=== PATIENT | female | born 1995 | race Caucasian/White ===

== ENCOUNTER 2017-02-02 12:28 | Emergency (ER) | payer OTHER ==
[~2017-02-02] VITALS: Ht 160 cm; Wt 49.0 kg
[~2017-02-02 12:28] MED LIST: ADDERALL30 MG PO; ADDERALL5 MG PO; AMOXICILLIN500 MG PO; AMOXIL500 M1 PO; ANAPROX DS550 MG PO; ATIVAN0.5 MG PO; BACTRIM DS 8001 TA1 PO; BENADRYL ALLERG25 M5 PO; BENTYL10 MG PO; FLAGYL500 MG PO; FLEXERIL10 MG PO; FLEXERIL5 MG PO; GEODON20 MG PO; HYDROCODONE BIT1 T11 PO; IBU800 M1 PO; IBUPROFEN600 MG PO; K-TAB20 MEQ PO; KEFLEX500 MG PO; MACROBID100 M1 PO; MOTRIN600 MG PO; MOTRIN800 MG PO; NORCO 10-325 T1 EACH PO; NORCO 5-325 TA1 EACH PO; PERCOCET 325 MG1 TA7 PO; PREDNICOT20 MG PO; PRENATAL1 TA1 PO; PRENATAL1 TA3 PO; PRENATAL1 TA7 PO; PROVENTIL0.09 MG/AC IH; REGLAN10 M1 PO; TRAMADOL HCL50 MG PO; TRAZODONE50 MG PO; ULTRAM50 MG PO; VALIUM5 MG PO; VIBRAMYCIN100 MG PO; VICODIN 5/500 505 MG PO; VISTARIL25 M1 PO; ZITHROMAX Z PA250 MG PO; ZOFRAN ODT4 MG PO; ZOFRAN ODT4 MG SL; ZOFRAN4 MG PO; Zofran4 MG PO
[2017-02-02] MEDS ORDERED: AMOXICILLIN500 M2 PO (14:17)
[2017-02-02] MEDS ORDERED: MEDROL DOSEPAK4 MG PO (14:17)
== END 2017-02-02 14:28 | disposition home or self-care (01) ==
LOC: ED 12:28
DX: J01.90 Acute sinusitis, unspecified (principal); J45.909 Unspecified asthma, uncomplicated; F17.200 Nicotine dependence, unspecified, uncomplicated

== ENCOUNTER 2017-05-24 18:36 | Emergency (ER) | payer OTHER ==
[~2017-05-24] VITALS: Ht 160 cm; Wt 59.0 kg
[~2017-05-24 18:36] MED LIST changes: +AMOXICILLIN500 M2 PO; +MEDROL DOSEPAK4 MG PO
[2017-05-24 19:14] LABS: BILIRUBIN NEGATIVE (NEGATIVE); BLOOD 3+ (NEGATIVE); CLARITY CLOUDY (CLEAR); COLOR YELLOW (YELLOW); GLUCOSE NEGATIVE (NEGATIVE); KETONE NEGATIVE (NEGATIVE); LEUKO ESTERASE TRACE (NEGATIVE); NITRITE NEGATIVE (NEGATIVE); PH 6.5 (5.0-9.0); PROTEIN TRACE (NEGATIVE)
[2017-05-24 19:19] LABS: BACTERIA 1+; EPITHELIAL CELLS 0-2; RBC TNTC rbc/hpf (0-2)
[2017-05-24] MEDS ORDERED: CEFUROXIME AXE250 MG PO (21:43)
== END 2017-05-24 22:08 | disposition home or self-care (01) ==
LOC: ED 18:36
PROVIDERS: Registered Nurse
DX: O46.91 Antepartum hemorrhage, unspecified, first trimester (principal); Z3A.01 Less than 8 weeks gestation of pregnancy; F17.200 Nicotine dependence, unspecified, uncomplicated

== ENCOUNTER 2017-10-28 09:59 | Emergency (ER) | payer OTHER ==
[~2017-10-28] VITALS: Ht 160 cm; Wt 54.4 kg
[~2017-10-28 09:59] MED LIST changes: +CEFUROXIME AXE250 MG PO
[2017-10-28 10:54] LABS: BASO % 0.5 % (0.0-1.0); EOS # 0.1 10*3/uL (0.0-0.4); EOS % 0.8 % (1.0-4.0); HEMATOCRIT 32.5 % (37.0-47.0); LYMPH # 1.1 10*3/uL (1.3-4.4); LYMPH % 17.5 % (27.0-41.0); MEAN CELL VOLUME 72.2 fl (81.0-99.0); MEAN CORPUSCULAR HGB 22.2 pg (27.0-31.0); MEAN CORPUSCULAR HGB CONC 30.8 g/dl (33.0-37.0); MEAN PLATELET VOLUME 10.1 fl (9.6-12.3); MONO # 0.6 10*3/uL (0.1-1.0); MONO % 8.7 % (3.0-9.0); NEUT # 4.5 10*3/uL (2.3-7.9); NEUT % 72.2 % (47.0-73.0); PLATELET COUNT AUTOMATED 497 10*3/uL (130-400); RED CELL DISTRI WIDTH 17.3 % (0-14.5); WHITE BLOOD COUNT 6.3 10*3/uL (4.8-10.8)
[2017-10-28 11:09] LABS: ALBUMIN 3.5 gm/dl (3.1-4.5); ALKALINE PHOSPHATASE 101 U/L (45-117); BUN 11 mg/dl (7-24); CHLORIDE 106 mmol/L (98-107); POTASSIUM 3.4 mmol/L (3.5-5.1); SGOT/AST 23 IU/L (3-35); SGPT/ALT 18 U/L (12-78); SODIUM 137 mmol/L (136-145); TOTAL PROTEIN 7.8 gm/dL (6.4-8.2)
[2017-10-28 11:17] LABS: BILIRUBIN 1+ (NEGATIVE); BLOOD NEGATIVE (NEGATIVE); CLARITY SL CLOUDY (CLEAR); COLOR YELLOW (YELLOW); GLUCOSE NEGATIVE (NEGATIVE); KETONE TRACE (NEGATIVE); LEUKO ESTERASE NEGATIVE (NEGATIVE); NITRITE NEGATIVE (NEGATIVE); PH 5.5 (5.0-9.0); SPECIFIC GRAVITY >= 1.030 (1.005-1.030)
[2017-10-28 11:28] LABS: BACTERIA 2+; EPITHELIAL CELLS 16-20; MUCOUS 2+
[2017-10-28] MEDS ORDERED: DICLEGIS DR 101 EACH PO (11:34)
[2017-10-28] MEDS ORDERED: PRENATAL VITAM1 EAC4 PO (11:34)
== END 2017-10-28 12:00 | disposition home or self-care (01) ==
LOC: ED 09:59
PROVIDERS: Nurse Practitioner Family
DX: Z32.01 Encounter for pregnancy test, result positive (principal); F17.200 Nicotine dependence, unspecified, uncomplicated

== ENCOUNTER 2017-12-25 13:16 | Emergency (ER) | payer OTHER ==
[~2017-12-25] VITALS: Ht 160 cm; Wt 59.0 kg
[~2017-12-25 13:16] MED LIST changes: +DICLEGIS DR 101 EACH PO; +PRENATAL VITAM1 EAC4 PO
[2017-12-25 14:54] LABS: BILIRUBIN NEGATIVE (NEGATIVE); BLOOD NEGATIVE (NEGATIVE); CLARITY CLEAR (CLEAR); COLOR YELLOW (YELLOW); GLUCOSE NEGATIVE (NEGATIVE); KETONE NEGATIVE (NEGATIVE); LEUKO ESTERASE NEGATIVE (NEGATIVE); NITRITE NEGATIVE (NEGATIVE); PH 7.5 (5.0-9.0); UROBILINOGEN 0.2 E.U./dl (0.2-1.0)
[2017-12-25 14:59] LABS: RBC 0-2 rbc/hpf (0-2); WBC 0-2 wbc/hpf (0-5)
[2017-12-25] MEDS ORDERED: CLOTRIMAZOLE 321 GM V (15:09)
== END 2017-12-25 15:17 | disposition home or self-care (01) ==
LOC: ED 13:16
PROVIDERS: Emergency Medicine
DX: O26.892 Other specified pregnancy related conditions, second trimester (principal); R10.30 Lower abdominal pain, unspecified; F17.200 Nicotine dependence, unspecified, uncomplicated; Z3A.20 20 weeks gestation of pregnancy

== ENCOUNTER 2018-03-02 10:20 | Emergency (ER) | payer OTHER ==
[~2018-03-02] VITALS: Wt 59.0 kg
[~2018-03-02 10:20] MED LIST changes: +CLOTRIMAZOLE 321 GM V
[2018-03-02 10:50] LABS: BASO % 0.1 % (0.0-1.0); EOS % 0.1 % (1.0-4.0); HEMATOCRIT 30.3 % (37.0-47.0); HEMOGLOBIN 9.7 g/dl (12.0-16.0); LYMPH # 0.7 10*3/uL (1.3-4.4); LYMPH % 5.9 % (27.0-41.0); MEAN CELL VOLUME 72.8 fl (81.0-99.0); MEAN CORPUSCULAR HGB 23.3 pg (27.0-31.0); MEAN PLATELET VOLUME 10.5 fl (9.6-12.3); MONO # 0.6 10*3/uL (0.1-1.0); MONO % 4.6 % (3.0-9.0); NEUT # 10.6 10*3/uL (2.3-7.9); NEUT % 88.7 % (47.0-73.0); PLATELET COUNT AUTOMATED 303 10*3/uL (130-400); RED BLOOD COUNT 4.16 10*6/uL (4.10-5.10); RED CELL DISTRI WIDTH 16.9 % (0-14.5); WHITE BLOOD COUNT 11.9 10*3/uL (4.8-10.8)
[2018-03-02 11:05] LABS: ALBUMIN 2.9 gm/dl (3.1-4.5); ALKALINE PHOSPHATASE 126 U/L (45-117); BUN 3 mg/dl (7-24); CHLORIDE 101 mmol/L (98-107); CREATININE 0.58 mg/dL (0.55-1.02); POTASSIUM 2.8 mmol/L (3.5-5.1); SGOT/AST 13 IU/L (3-35); SGPT/ALT 18 U/L (12-78); SODIUM 132 mmol/L (136-145); TOTAL PROTEIN 7.3 gm/dL (6.4-8.2)
[2018-03-02 11:57] LABS: BILIRUBIN NEGATIVE (NEGATIVE); BLOOD NEGATIVE (NEGATIVE); CLARITY CLOUDY (CLEAR); COLOR YELLOW (YELLOW); GLUCOSE NEGATIVE (NEGATIVE); KETONE NEGATIVE (NEGATIVE); LEUKO ESTERASE 1+ (NEGATIVE); NITRITE NEGATIVE (NEGATIVE); SPECIFIC GRAVITY <= 1.005 (1.005-1.030)
[2018-03-02 12:15] LABS: BACTERIA 3+; EPITHELIAL CELLS 15-20; WBC 31-40 wbc/hpf (0-5)
[2018-03-02] MEDS ORDERED: TAMIFLU 75MG CA75 MG PO (12:55)
[2018-03-02] MEDS ORDERED: K-TAB20 MEQ PO (12:58)
== END 2018-03-02 13:00 | disposition home or self-care (01) ==
LOC: ED 10:20
PROVIDERS: Nurse Practitioner Family
DX: O98.512 Other viral diseases complicating pregnancy, second trimester (principal); J10.1 Influenza due to other identified influenza virus with other respiratory manifestations; O26.892 Other specified pregnancy related conditions, second trimester; E87.6 Hypokalemia; Z79.899 Other long term (current) drug therapy; Z3A.23 23 weeks gestation of pregnancy

== ENCOUNTER 2018-03-07 11:40 | Emergency (ER) | payer OTHER ==
[~2018-03-07] VITALS: Ht 160 cm; Wt 59.0 kg
[~2018-03-07 11:40] MED LIST changes: +TAMIFLU 75MG CA75 MG PO
[2018-03-07 12:35] LABS: BASO % 0.2 % (0.0-1.0); EOS # 0.1 10*3/uL (0.0-0.4); EOS % 1.4 % (1.0-4.0); HEMATOCRIT 29.7 % (37.0-47.0); HEMOGLOBIN 9.3 g/dl (12.0-16.0); LYMPH % 20.8 % (27.0-41.0); MEAN CELL VOLUME 74.4 fl (81.0-99.0); MEAN CORPUSCULAR HGB 23.3 pg (27.0-31.0); MEAN CORPUSCULAR HGB CONC 31.3 g/dl (33.0-37.0); MEAN PLATELET VOLUME 10.1 fl (9.6-12.3); MONO # 0.4 10*3/uL (0.1-1.0); MONO % 4.6 % (3.0-9.0); NEUT # 6.9 10*3/uL (2.3-7.9); NEUT % 72.6 % (47.0-73.0); PLATELET COUNT AUTOMATED 300 10*3/uL (130-400); RED BLOOD COUNT 3.99 10*6/uL (4.10-5.10); RED CELL DISTRI WIDTH 16.6 % (0-14.5); WHITE BLOOD COUNT 9.4 10*3/uL (4.8-10.8)
[2018-03-07 12:54] LABS: ALBUMIN 2.4 gm/dl (3.1-4.5); ALKALINE PHOSPHATASE 161 U/L (45-117); BUN 3 mg/dl (7-24); CHLORIDE 104 mmol/L (98-107); CREATININE 0.53 mg/dL (0.55-1.02); POTASSIUM 2.9 mmol/L (3.5-5.1); SGOT/AST 12 IU/L (3-35); SGPT/ALT 14 U/L (12-78); SODIUM 138 mmol/L (136-145); TOTAL PROTEIN 7.2 gm/dL (6.4-8.2)
== END 2018-03-07 13:51 | disposition home or self-care (01) ==
LOC: ED 11:40
PROVIDERS: Nurse Practitioner
DX: O99.511 Diseases of the respiratory system complicating pregnancy, first trimester (principal); J02.9 Acute pharyngitis, unspecified; F17.200 Nicotine dependence, unspecified, uncomplicated

== ENCOUNTER → 2018-04-17 | Outpatient (CLI) | payer OTHER | LOC: US 14:45 | DX: Z33.1 Pregnant state, incidental (principal); Z3A.28 28 weeks gestation of pregnancy ==

== ENCOUNTER 2018-07-18 12:01 | Emergency (ER) | payer OTHER ==
[~2018-07-18] VITALS: Ht 160 cm; Wt 63.5 kg
[~2018-07-18 12:01] MED LIST changes: +AMINOPHYLLIN200 MG PO
[2018-07-18 12:31] LABS: BILIRUBIN NEGATIVE (NEGATIVE); BLOOD NEGATIVE (NEGATIVE); CLARITY SL CLOUDY (CLEAR); COLOR YELLOW (YELLOW); GLUCOSE NEGATIVE (NEGATIVE); KETONE NEGATIVE (NEGATIVE); LEUKO ESTERASE NEGATIVE (NEGATIVE); NITRITE NEGATIVE (NEGATIVE); UROBILINOGEN 0.2 E.U./dl (0.2-1.0)
[2018-07-18 12:45] LABS: BACTERIA 3+; EPITHELIAL CELLS 15-20
[2018-07-18] MEDS ORDERED: CEPHALEXIN500 M1 PO (13:17)
== END 2018-07-18 13:25 | disposition home or self-care (01) ==
LOC: ED 12:01
PROVIDERS: Nurse Practitioner Family
DX: N76.4 Abscess of vulva (principal); F17.200 Nicotine dependence, unspecified, uncomplicated; Z90.49 Acquired absence of other specified parts of digestive tract

== ENCOUNTER 2018-08-30 16:39 | Emergency (ER) | payer OTHER ==
[~2018-08-30] VITALS: Ht 160 cm; Wt 63.5 kg
[~2018-08-30 16:39] MED LIST changes: +CEPHALEXIN500 M1 PO
[2018-08-30] MEDS ORDERED: AUGMENTIN 875875 MG PO (17:08)
[2018-08-30] MEDS ORDERED: IBUPROFEN600 MG PO (17:08)
== END 2018-08-30 17:16 | disposition home or self-care (01) ==
LOC: ED 16:39
DX: K02.9 Dental caries, unspecified (principal); F17.200 Nicotine dependence, unspecified, uncomplicated; Z79.2 Long term (current) use of antibiotics; Z90.49 Acquired absence of other specified parts of digestive tract

== ENCOUNTER 2018-09-11 13:02 | Emergency (ER) | payer OTHER ==
[~2018-09-11] VITALS: Ht 160 cm; Wt 63.5 kg
[~2018-09-11 13:02] MED LIST changes: +AUGMENTIN 875875 MG PO
[2018-09-11] MEDS ORDERED: ZITHROMAX250 MG PO (14:36)
== END 2018-09-11 15:09 | disposition home or self-care (01) ==
LOC: ED 13:02
DX: J40 Bronchitis, not specified as acute or chronic (principal); F32.9 Major depressive disorder, single episode, unspecified; F41.9 Anxiety disorder, unspecified; F17.200 Nicotine dependence, unspecified, uncomplicated; Z79.2 Long term (current) use of antibiotics; Z90.49 Acquired absence of other specified parts of digestive tract

== ENCOUNTER 2018-12-06 16:36 | Emergency (ER) | payer OTHER ==
[~2018-12-06] VITALS: Ht 160 cm; Wt 63.5 kg
[~2018-12-06 16:36] MED LIST changes: +ZITHROMAX250 MG PO
[2018-12-06 17:05] LABS: BILIRUBIN NEGATIVE (NEGATIVE); BLOOD TRACE-INTACT (NEGATIVE); CLARITY SL CLOUDY (CLEAR); COLOR YELLOW (YELLOW); GLUCOSE NEGATIVE (NEGATIVE); KETONE NEGATIVE (NEGATIVE); LEUKO ESTERASE 2+ (NEGATIVE); NITRITE NEGATIVE (NEGATIVE); SPECIFIC GRAVITY <= 1.005 (1.005-1.030); UROBILINOGEN 0.2 E.U./dl (0.2-1.0)
[2018-12-06 17:10] LABS: BACTERIA 2+; EPITHELIAL CELLS TNTC; RBC 0-2 rbc/hpf (0-2); WBC TNTC wbc/hpf (0-5)
[2018-12-06] MEDS ORDERED: CEFUROXIME AXE500 MG PO (17:20)
[2019-01-23] MEDS ORDERED: PT DENIES ANY MEDS (10:37)
== END 2018-12-06 17:55 | disposition home or self-care (01) ==
LOC: ED 16:36
PROVIDERS: Nurse Practitioner Family
DX: N39.0 Urinary tract infection, site not specified (principal); F17.200 Nicotine dependence, unspecified, uncomplicated

== ENCOUNTER 2018-12-24 23:14 | Emergency (ER) | payer OTHER ==
[~2018-12-24] VITALS: Wt 72.6 kg
[~2018-12-24 23:14] MED LIST changes: +CEFUROXIME AXE500 MG PO
[2018-12-24 23:36] LABS: BILIRUBIN NEGATIVE (NEGATIVE); BLOOD 3+ (NEGATIVE); CLARITY CLEAR (CLEAR); COLOR YELLOW (YELLOW); GLUCOSE NEGATIVE (NEGATIVE); KETONE NEGATIVE (NEGATIVE); LEUKO ESTERASE NEGATIVE (NEGATIVE); NITRITE NEGATIVE (NEGATIVE); UROBILINOGEN 0.2 E.U./dl (0.2-1.0)
[2018-12-24 23:45] LABS: EPITHELIAL CELLS 20-25
[2018-12-24 23:51] LABS: RBC 21-30 rbc/hpf (0-2)
[2018-12-24] MEDS ORDERED: ZOFRAN4 MG PO (23:53)
[2019-01-23] MEDS ORDERED: PT DENIES ANY MEDS (10:37)
[2019-04-22] MEDS ORDERED: CLINDAMYCIN HC300 MG PO (22:08)
[2019-04-23] MEDS ORDERED: MELATONIN5 M6 PO (17:06)
[2019-04-26] MEDS ORDERED: HYDROCODONE-AC1 EAC1 PO (14:19)
[2019-04-26] MEDS ORDERED: AUGMENTIN 875875 MG PO (14:20)
[2019-05-11] MEDS ORDERED: CEPHALEXIN500 M1 PO (15:20)
== END 2018-12-25 00:27 | disposition home or self-care (01) ==
LOC: ED 23:14
PROVIDERS: Physician Assistant
DX: R11.2 Nausea with vomiting, unspecified (principal); F17.200 Nicotine dependence, unspecified, uncomplicated; Z79.899 Other long term (current) drug therapy; Z79.2 Long term (current) use of antibiotics; Z90.49 Acquired absence of other specified parts of digestive tract

== ENCOUNTER 2018-12-29 21:00 | Inpatient (IN) | payer OTHER ==
[~2018-12-29] VITALS: Ht 160 cm; Wt 66.8 kg
--- NOTE | ~2018-12-29 | CON ---
[place], [place] REPORT OF CONSULTATION NAME: EVIE CHAVARRIA UNIT #: [id number] ROOM: 411 DOCTOR: EVELIA ALMEIDA DMD BIRTHDATE: [birth year] DOS: 12/31/2018 HISTORY OF PRESENT ILLNESS: A 23-year-old female admitted for left-sided facial swelling. The patient states that she was seen in [place] and referred to an oral surgeon for full mouth extraction. States that her wisdom tooth on the lower left is carious to the gumline. There is moderate left-sided swelling with submandibular tenderness. Intraoral exam is extremely limited due to trismus and less than 10 mm of maximum opening. On exam, generalized poor oral condition. Cervical caries noted. The patient denies any dyspnea or dysphagia. Recommend full mouth extraction once the trismus resolves. Patient is to follow up in the office once discharged for scheduling. EVELIA ALMEIDA DMD CM:CONSTR:REPORT OF CONSULTATION 1030 01/01/19 0047 interface
[2018-12-29 21:03] VITALS: BP 103/47
[2018-12-30 01:15] VITALS: BP 126/94
--- NOTE | 2018-12-30 01:15 | NUR ---
Time: 114 A 23 year old FEMALE admitted to 4E under services of JOHNNY RIOS DO. Pt. arrived via bed from ER. Chief complaint: DENTAL ABSCESS. CULLEN PARSONS
--- NOTE | 2018-12-30 01:34 | NUR ---
NOTIFIED DR ALBARRAN OF PATIENT NEEDING PAIN MEDICATIONS BUT HAS NPO ORDER IN. STATED IT IS OKAY TO GIVE NORCO WITH SIP OF WATER
--- NOTE | 2018-12-30 01:50 | NUR ---
PATIENT MEDICATED WITH PRN NORCO ORDERED FOR LEFT TOOTH ABSCESS PAIN RATED 8/10
[2018-12-30] MEDS ORDERED: CELEXA20 MG PO (01:53)
[2018-12-30] MEDS ORDERED: TRAZODONE50 MG PO (01:53)
[2018-12-30] MEDS ORDERED: BUSPAR5 MG PO (01:53)
--- NOTE | 2018-12-30 01:54 | NUR ---
MED REC UPDATED WITH PATIENT.
[2018-12-30 02:30] VITALS: BP 99/50
--- NOTE | 2018-12-30 02:41 | NUR ---
PATIENT STATES EARLIER NORCO IS EFFECTIVE.
[2018-12-30 06:04] LABS: CHLORIDE 111 mmol/L (98-107); POTASSIUM 3.5 mmol/L (3.5-5.1); SODIUM 142 mmol/L (136-145)
[2018-12-30 06:14] LABS: ALBUMIN 2.7 gm/dl (3.1-4.5); ALKALINE PHOSPHATASE 77 U/L (45-117); BUN 9 mg/dl (7-24); CHOLESTEROL 97 mg/dL (<200); CREATININE 0.65 mg/dL (0.55-1.02); FREE T4 0.97 ng/dl (0.76-1.46); HDL CHOLESTEROL 32 mg/dl (40-60); LDL CHOLESTEROL 51 mg/dL (9-159); PHOSPHOROUS 3.4 mg/dL (2.5-4.9); SGOT/AST 8 IU/L (3-35); SGPT/ALT 13 U/L (12-78); TOTAL PROTEIN 5.9 gm/dL (6.4-8.2); TRIGLYCERIDES 68 mg/dl (<150); VLDL CHOLESTEROL 14 mg/dL (6-40)
[2018-12-30 06:18] LABS: BASO % 0.4 % (0.0-1.0); EOS # 0.2 10*3/uL (0.0-0.4); EOS % 3.6 % (1.0-4.0); LYMPH # 2.6 10*3/uL (1.3-4.4); LYMPH % 46.5 % (27.0-41.0); MEAN CELL VOLUME 80.6 fl (81.0-99.0); MEAN CORPUSCULAR HGB 24.4 pg (27.0-31.0); MEAN CORPUSCULAR HGB CONC 30.3 g/dl (33.0-37.0); MEAN PLATELET VOLUME 11.6 fl (9.6-12.3); MONO # 0.6 10*3/uL (0.1-1.0); MONO % 10.9 % (3.0-9.0); NEUT # 2.1 10*3/uL (2.3-7.9); NEUT % 38.4 % (47.0-73.0); PLATELET COUNT AUTOMATED 294 10*3/uL (130-400); WHITE BLOOD COUNT 5.5 10*3/uL (4.8-10.8)
[2018-12-30 06:28] LABS: HEMOGLOBIN 8.8 g/dl (12.0-16.0)
--- NOTE | 2018-12-30 06:38 | NUR ---
NOTIFIED DR ALMEIDA OF CONSULT. STATED HE WILL TRY TO MAKE IT IN TODAY.
[2018-12-30 07:52] LABS: VITAMIN D, 25-HYDROXY 21.1 ng/mL (30-100)
--- NOTE | 2018-12-30 07:53 | NUR ---
NORCO 5/325 GIVEN PER PATIENT REQUEST FOR RIGHT FACIAL PAIN. PATIENT RATES PAIN A 3/10.
[2018-12-30 08:00] VITALS: BP 100/58; BP 85/58
--- NOTE | 2018-12-30 09:00 | NUR ---
PATIENT RESTING COMFORTABLY. NORCO EFFECTIVE.
[2018-12-30 12:00] VITALS: BP 118/566
--- NOTE | 2018-12-30 12:02 | NUR ---
norco 5/325 given per patient request for left face pain rating a 7/10.
--- NOTE | 2018-12-30 13:00 | NUR ---
NORCO EFFECTIVE FOR PAIN.
--- NOTE | 2018-12-30 13:17 | NUR ---
ZOFRAN 4MG IV GIVEN FOR NAUSEA AND VOMTING.
--- NOTE | 2018-12-30 13:17 | NUR ---
ZOFRAN EFFECTIVE FOR VOMTING.
[2018-12-30 16:00] VITALS: BP 104/58
--- NOTE | 2018-12-30 17:19 | NUR ---
NORCO GIVEN FOR C/O MOUTH PAIN. WILL MONITOR.
--- NOTE | 2018-12-30 19:38 | NUR ---
PATIENT MEDICATED WITH PRN ZOFRAN ORDERED FOR C/O NAUSEA. PLEASANT/COOPERATIVE FOR SHIFT ASSESSMENT. FAMILY MEMBER AT BEDSIDE. CALL LIGHT IS IN REACH
--- NOTE | 2018-12-30 21:34 | NUR ---
PATIENT MEDICATED WITH PRN NORCO ORDERED FOR C/O LEFT JAW PAIN RATED 8/10
[2018-12-30 21:50] VITALS: BP 112/54
--- NOTE | 2018-12-30 22:55 | NUR ---
NORCO EFFECTIVE PER PATIENT
--- NOTE | 2018-12-30 23:00 | NUR ---
ASSUMED CARE OF PATIENT. PATIENT IS RESTING IN BED WITH EASY AND REGULAR RESPERS ON ROOM AIR. ASSESSMENT IS COMPLETE WITH NO C/O OR S/S OF DISTRESS NOTED AT THIS TIME. BED IS LOW, LOCKED, AND CALL LIGHT IS WITHIN REACH. SEE SHIFT ASSESSMENT.
[2018-12-31] VITALS: BP 110/56
--- NOTE | 2018-12-31 02:25 | NUR ---
MEDICATED WITH PRN NORCO FOR C/O MOUTH PAIN RATING A 7/10. PATIENT TOLERATED WELL, CALL LIGHT IS WITHIN REACH. WILL MONITOR EFFECT.
[2018-12-31 06:03] LABS: BASO % 0.5 % (0.0-1.0); EOS # 0.2 10*3/uL (0.0-0.4); EOS % 3.7 % (1.0-4.0); HEMATOCRIT 31.3 % (37.0-47.0); HEMOGLOBIN 9.6 g/dl (12.0-16.0); LYMPH # 2.3 10*3/uL (1.3-4.4); LYMPH % 37.6 % (27.0-41.0); MEAN CELL VOLUME 79.6 fl (81.0-99.0); MEAN CORPUSCULAR HGB 24.4 pg (27.0-31.0); MEAN CORPUSCULAR HGB CONC 30.7 g/dl (33.0-37.0); MEAN PLATELET VOLUME 11.6 fl (9.6-12.3); MONO # 0.5 10*3/uL (0.1-1.0); NEUT # 2.9 10*3/uL (2.3-7.9); NEUT % 48.9 % (47.0-73.0); PLATELET COUNT AUTOMATED 320 10*3/uL (130-400); RED BLOOD COUNT 3.93 10*6/uL (4.10-5.10); RED CELL DISTRI WIDTH 16.4 % (0-14.5)
[2018-12-31 08:00] VITALS: BP 131/63
--- NOTE | 2018-12-31 10:38 | NUR ---
NORCO GIVEN FOR C/O MOUTH PAIN. WILL MONITOR.
--- NOTE | 2018-12-31 11:40 | NUR ---
NORCO NOT FULLY EFFECTIVE. WILL CONTINUE TO MONITOR.
[2018-12-31 12:00] VITALS: BP 125/78
--- NOTE | 2018-12-31 12:11 | NUR ---
ZOFRAN GIVEN FOR C/O NAUSEA. WILL MONITOR.
--- NOTE | 2018-12-31 13:15 | NUR ---
ZOFRAN EFFECTIVE PER PT
--- NOTE | 2018-12-31 15:15 | NUR ---
PERCOCET GIBVEN FOR C/O MOUTH PAIN. WILL MONITOR.
[2018-12-31 16:00] VITALS: BP 101/59
--- NOTE | 2018-12-31 16:15 | NUR ---
PERCOCET EFFECTIVE PER PT.
[2018-12-31 20:00] VITALS: BP 117/59
--- NOTE | 2018-12-31 20:25 | NUR ---
PATIENT MEDICATED WITH PO TYLENOL PER PRN ORDER FOR C/O PAIN IN L SIDE OF MOUTH RATED 6/10. WILL MONITOR. CALL LIGHT LEFT IN REACH.
--- NOTE | 2018-12-31 21:07 | NUR ---
NOTIFIED OF PT'S C/O PAIN IN MOUTH AND NOT BEING ABLE TO OPEN MOUTH. PATIENT REQUESTING A MUSCLE RELAXER. NEW ORDER RECEIVED FOR 1X DOSE PO FLEXERIL 1 MG.
--- NOTE | 2018-12-31 22:09 | NUR ---
PATIENT MEDICATED WITH PO PERCOCET PER PRN ORDER FOR C/O PAIN IN MOUTH RATED 6/10. PO FLEXERIL ALSO GIVEN PER 1X ORDER FOR INABILITY TO OPEN MOUTH. WILL MONITOR EFFECTIVENESS. NEW IV SITE INITIATED IN L FOREARM PER POLICY SITE IN RAC WAS LEAKING WHEN FLUSHED WITH NS. PATIENT TOLERATED WELL.
--- NOTE | 2018-12-31 22:57 | NUR ---
EARLIER MEDICATIONS EFFECTIVE PER PT. WILL CONTINUE TO MONITOR. CALL LIGHT LEFT IN REACH.
[2019-01-01] VITALS: BP 104/66
--- NOTE | 2019-01-01 06:15 | NUR ---
PATIENT MEDICATED WITH PO PERCOCET PER PRN ORDER FOR C/O PAIN IN L SIDE OF MOUTH RATED 7/10. WILL MONITOR EFFECTIVENESS. CALL LIGHT LEFT IN REACH.
--- NOTE | 2019-01-01 07:30 | NUR ---
ASSESSMENT COMPLETED AT THIS TIME. PT IS COOPERATIVE WITH NO OVERT SIGNS OF DISTRESS. RATES MOUTH PAIN 2/10 AND STATES PREVIOUS MEDICATION WAS EFFECTIVE. DENIES N/V. RESTING NOW, CALL LIGHT WITHIN REACH. KALYI DOS SANTOS SPBOBCC
[2019-01-01 08:00] VITALS: BP 108/68
--- NOTE | 2019-01-01 09:00 | NUR ---
Real Estate Lawyer in to talk to patient. Patient states lives at home with alone. There are few steps in the home. Physician: [facility]acy[facility] Home health services: none Patient's level of ADLs: INDEPENDENT Patient has working utilities: all working DME: none Follow-up physician's appointment after d/c: will be made by hospitalist nurse director upon discharge Does patient want to access PORTAL?: no Discharge plan discussed with patient, patient lives at home. she states she is independent in adls and ambulation, patient states she will be going home when able and denies any home needs. HOWARD BLEDSOE
[2019-01-01 12:00] VITALS: BP 112/52
--- NOTE | 2019-01-01 12:18 | NUR ---
PT C/O JAW PAIN, RATING IT 7 OUT OF 10. MEDICATED WITH NORCO PER PT REQUEST. PT ALSO C/O NAUSEA AND WAS MEDICATED WITH IV ZOFRAN WITH INSTRUCTOR. KAYLI WELLINGTON
--- NOTE | 2019-01-01 13:25 | NUR ---
PT IS WITH FAMILY AT THIS TIME AND DISPLAYS NO OVERT SIGNS OF DISTRESS. CALL LIGHT IS WITHIN REACH, NO FURTHER COMPLAINTS OF PAIN. REPORT GIVEN TO LUZ ELENA JIMENEZCC
[2019-01-01 16:00] VITALS: BP 96/52
--- NOTE | 2019-01-01 16:34 | NUR ---
PT MEDICATED WITH PERCOCET FOR C/O MOUTH PAIN. PT RATES A 06/23. WILL REACCESS.
--- NOTE | 2019-01-01 18:50 | NUR ---
PRN PERCOCET EFFECTIVE PER PT.
--- NOTE | 2019-01-01 19:18 | NUR ---
ASSUMED CARE OF PT AT THIS TIME. PT AWAKE SITTING UP IN BED. VISITOR AT BEDSIDE. PATIENT C/O SOME PAIN IN L SIDE OF MOUTH AND SOME "UTERUS PAIN." PATIENT REQUESTING HEATING PAD. WILL SET PATIENT UP WITH HEATING PAD AND MEDICATE WITH PRN MEDICATIONS PRESCRIBED.
[2019-01-01 20:00] VITALS: BP 117/53
[2019-01-02] VITALS: BP 99/52
--- NOTE | 2019-01-02 00:55 | NUR ---
PT MEDICATED WITH PO NORCO PER PRN ORDER FOR C/O PAIN IN L SIDE OF MOUTH. WILL MONITOR EFFECTIVENESS.
[2019-01-02 06:17] LABS: BASO % 0.6 % (0.0-1.0); EOS # 0.2 10*3/uL (0.0-0.4); EOS % 3.6 % (1.0-4.0); HEMATOCRIT 33.3 % (37.0-47.0); HEMOGLOBIN 10.2 g/dl (12.0-16.0); LYMPH # 2.3 10*3/uL (1.3-4.4); LYMPH % 48.8 % (27.0-41.0); MEAN CELL VOLUME 79.7 fl (81.0-99.0); MEAN CORPUSCULAR HGB 24.4 pg (27.0-31.0); MEAN CORPUSCULAR HGB CONC 30.6 g/dl (33.0-37.0); MEAN PLATELET VOLUME 11.6 fl (9.6-12.3); MONO # 0.4 10*3/uL (0.1-1.0); MONO % 9.3 % (3.0-9.0); NEUT # 1.8 10*3/uL (2.3-7.9); NEUT % 37.7 % (47.0-73.0); PLATELET COUNT AUTOMATED 327 10*3/uL (130-400); RED BLOOD COUNT 4.18 10*6/uL (4.10-5.10); RED CELL DISTRI WIDTH 15.9 % (0-14.5); WHITE BLOOD COUNT 4.8 10*3/uL (4.8-10.8)
[2019-01-02 06:43] LABS: BUN 7 mg/dl (7-24); CHLORIDE 105 mmol/L (98-107); CREATININE 0.76 mg/dL (0.55-1.02); POTASSIUM 3.9 mmol/L (3.5-5.1); SODIUM 140 mmol/L (136-145)
[2019-01-02 08:00] VITALS: BP 95/38
--- NOTE | 2019-01-02 09:00 | NUR ---
case management visits with patient, patient states she feels a little better. patient states she will be going home when able and denies any home needs
[2019-01-02] MEDS ORDERED: AUGMENTIN 875875 MG PO (10:11)
[2019-01-02] MEDS ORDERED: B12,B-12,B 12500 MC1 PO (10:11)
[2019-01-02] MEDS ORDERED: HYDROCODONE-AC1 EAC2 PO (10:11)
[2019-01-02] MEDS ORDERED: VITAMIN D5000 UNI1 PO (10:11)
[2019-01-02] MEDS ORDERED: CYCLOBENZAPRINE10 MG PO (10:11)
--- NOTE | 2019-01-02 11:30 | NUR ---
PT AMBULATED OFF THE FLOOR AT THIS TIME AFTER BEING DISCHARGED. HEPLOCK DISCONTINUED. PRESCRIPTIONS AND FOLLOW UP CARE DISCUSSED. PT REFUSED WHEELCHAIR.
[2019-01-23] MEDS ORDERED: PT DENIES ANY MEDS (10:37)
[2019-04-22] MEDS ORDERED: CLINDAMYCIN HC300 MG PO (22:08)
[2019-04-23] MEDS ORDERED: MELATONIN5 M6 PO (17:06)
[2019-04-26] MEDS ORDERED: HYDROCODONE-AC1 EAC1 PO (14:19)
[2019-04-26] MEDS ORDERED: AUGMENTIN 875875 MG PO (14:20)
[2019-05-11] MEDS ORDERED: CEPHALEXIN500 M1 PO (15:20)
== END 2019-01-02 11:30 | disposition home or self-care (01) | DRG 871 ==
LOC: ED 21:00 → EDHOLD 22:39 → 4E 22:39
PROVIDERS: Family Medicine; Internal Medicine; ADMIT Internal Medicine
DX: A41.9 Sepsis, unspecified organism (principal); E43 Unspecified severe protein-calorie malnutrition; K04.7 Periapical abscess without sinus; K02.9 Dental caries, unspecified; G47.00 Insomnia, unspecified; E55.9 Vitamin D deficiency, unspecified; D50.9 Iron deficiency anemia, unspecified; F41.9 Anxiety disorder, unspecified; F32.9 Major depressive disorder, single episode, unspecified; E87.8 Other disorders of electrolyte and fluid balance, not elsewhere classified; R52 Pain, unspecified; E53.8 Deficiency of other specified B group vitamins; F17.200 Nicotine dependence, unspecified, uncomplicated; E87.6 Hypokalemia; Z71.6 Tobacco abuse counseling; Z90.49 Acquired absence of other specified parts of digestive tract; Z82.49 Family history of ischemic heart disease and other diseases of the circulatory system; Z80.8 Family history of malignant neoplasm of other organs or systems; Z68.24 Body mass index [BMI] 24.0-24.9, adult

== ENCOUNTER → 2019-01-30 | Day surgery (SDC) | payer OTHER ==
[~2019-01-30] VITALS: Ht 160 cm; Wt 63.5 kg
[~2019-01-30] MED LIST changes: +B12,B-12,B 12500 MC1 PO; +BUSPAR5 MG PO; +CELEXA20 MG PO; +CLINDAMYCIN HC300 MG PO; +CYCLOBENZAPRINE10 MG PO; +HYDROCODONE-AC1 EAC1 PO; +HYDROCODONE-AC1 EAC2 PO; +MELATONIN5 M6 PO; +PT DENIES ANY MEDS; +VITAMIN D5000 UNI1 PO
== END | disposition home or self-care (01) ==
LOC: SDC 01-23 10:15
DX: K02.9 Dental caries, unspecified (principal); Z53.8 Procedure and treatment not carried out for other reasons

== ENCOUNTER 2019-04-12 11:11 | Inpatient (IN) | payer OTHER ==
[~2019-04-12] VITALS: Ht 160 cm; Wt 64.9 kg
[~2019-04-12 11:11] MED LIST changes: -CLINDAMYCIN HC300 MG PO; -HYDROCODONE-AC1 EAC1 PO; -MELATONIN5 M6 PO
[2019-04-12 11:13] VITALS: BP 103/69
[2019-04-12 11:39] LABS: BASO # 0.1 10*3/uL (0.0-0.1); BASO % 0.3 % (0.0-1.0); EOS % 0.1 % (1.0-4.0); HEMATOCRIT 34.7 % (37.0-47.0); HEMOGLOBIN 10.7 g/dl (12.0-16.0); LYMPH # 1.2 10*3/uL (1.3-4.4); LYMPH % 7.9 % (27.0-41.0); MEAN CELL VOLUME 76.4 fl (81.0-99.0); MEAN CORPUSCULAR HGB 23.6 pg (27.0-31.0); MEAN CORPUSCULAR HGB CONC 30.8 g/dl (33.0-37.0); MEAN PLATELET VOLUME 10.2 fl (9.6-12.3); MONO # 0.7 10*3/uL (0.1-1.0); NEUT # 12.8 10*3/uL (2.3-7.9); NEUT % 86.2 % (47.0-73.0); PLATELET COUNT AUTOMATED 464 10*3/uL (130-400); RED BLOOD COUNT 4.54 10*6/uL (4.10-5.10); RED CELL DISTRI WIDTH 16.9 % (0-14.5); WHITE BLOOD COUNT 14.9 10*3/uL (4.8-10.8)
--- NOTE | 2019-04-12 11:42 | NUR ---
EVERETT GIVEN BY DANIEL GONZALEZ
[2019-04-12 11:53] LABS: ALBUMIN 3.5 gm/dl (3.1-4.5); ALKALINE PHOSPHATASE 106 U/L (45-117); BUN 9 mg/dl (7-24); CHLORIDE 108 mmol/L (98-107); CREATININE 0.92 mg/dL (0.55-1.02); LIPASE 83 U/L (73-393); POTASSIUM 3.4 mmol/L (3.5-5.1); SGOT/AST 15 IU/L (3-35); SGPT/ALT 23 U/L (12-78); SODIUM 138 mmol/L (136-145); TOTAL PROTEIN 8.1 gm/dL (6.4-8.2)
[2019-04-12 15:28] VITALS: BP 99/57
--- NOTE | 2019-04-12 16:35 | NUR ---
A 23, admitted to , under the services of MAURO Alejandro DO with a diagnosis of COLITIS, SEPSIS. Chief complaint is NAUSEA, VOMITING AND DIARRHEA SINCE YESTERDAY, STATES SHE ALSO HAD A FEVER. STATES SHE KNEW SHE HAD A FEVER DUE TO NIGHT SWEATS AND HOT AND COLD FEELINGS. Patient arrived via stretcher from ER. Monitor applied. Initial assessment completed. Vital signs taken and recorded. See assessment for past medical history, medications and allergies. Patient and/or family oriented to unit. [facility] reviewed. ALEJANDRA DUKES
[2019-04-12] MEDS ORDERED: MELATONIN5 M6 PO (16:43)
[2019-04-12 16:45] VITALS: BP 100/55
--- NOTE | 2019-04-12 17:59 | NUR ---
C/o abdominal pain after eating full liquid diet. Medicated with morphine iv per prn order. Pt states she also feels like she is going to vomit. Offered zofran and pt states she would like.
--- NOTE | 2019-04-12 18:02 | NUR ---
Zofran iv given pt states that she vomited.
--- NOTE | 2019-04-12 19:36 | NUR ---
PRN NICOTINE PATCH PLACED ON RIGHT UPPER ARM PER PATIENT REQUEST. NO FURTHER NEEDS AT THIS TIME. WILL CONTINUE TO MONITOR.
[2019-04-12 20:00] VITALS: BP 93/52
[2019-04-13] VITALS: BP 98/50
--- NOTE | 2019-04-13 01:42 | NUR ---
PATIENT RESTING IN BED USING CELLULAR PHONE. ONLY REQUEST IS FOR A RODRI NEELA. PATIENT STATES THAT SHE IS FEELING BETTER NOW THAN EARLIER.
[2019-04-13 06:32] LABS: BASO % 0.3 % (0.0-1.0); EOS # 0.1 10*3/uL (0.0-0.4); EOS % 1.3 % (1.0-4.0); HEMATOCRIT 29.8 % (37.0-47.0); LYMPH # 1.6 10*3/uL (1.3-4.4); LYMPH % 23.5 % (27.0-41.0); MEAN CELL VOLUME 78.4 fl (81.0-99.0); MEAN CORPUSCULAR HGB 23.7 pg (27.0-31.0); MEAN CORPUSCULAR HGB CONC 30.2 g/dl (33.0-37.0); MEAN PLATELET VOLUME 11.1 fl (9.6-12.3); MONO # 0.5 10*3/uL (0.1-1.0); MONO % 8.1 % (3.0-9.0); NEUT # 4.4 10*3/uL (2.3-7.9); NEUT % 66.4 % (47.0-73.0); PLATELET COUNT AUTOMATED 341 10*3/uL (130-400); RED CELL DISTRI WIDTH 17.3 % (0-14.5); WHITE BLOOD COUNT 6.7 10*3/uL (4.8-10.8)
[2019-04-13 06:58] LABS: BUN 4 mg/dl (7-24); CHLORIDE 114 mmol/L (98-107); CHOLESTEROL 104 mg/dL (<200); CREATININE 0.68 mg/dL (0.55-1.02); FREE T4 1.06 ng/dl (0.76-1.46); HDL CHOLESTEROL 38 mg/dl (40-60); LDL CHOLESTEROL 54 mg/dL (9-159); PHOSPHOROUS 2.4 mg/dL (2.5-4.9); POTASSIUM 3.3 mmol/L (3.5-5.1); SODIUM 142 mmol/L (136-145); TRIGLYCERIDES 62 mg/dl (<150); VLDL CHOLESTEROL 12 mg/dL (6-40)
[2019-04-13 07:13] LABS: ACT PARTIAL THROMBO TIME 27.6 SECONDS (20.0-32.1)
[2019-04-13 08:00] VITALS: BP 99/62
[2019-04-13 08:19] LABS: VITAMIN D, 25-HYDROXY 31.6 ng/mL (30-100)
--- NOTE | 2019-04-13 09:11 | NUR ---
Medicated with morphine iv per prn order for complaints of abdominal pain. Denies nausea at this time.
--- NOTE | 2019-04-13 09:50 | NUR ---
IV started right forearm with #20 angiocath after 1 attempts. The IV site was prepped with Chloraprep. Heparin lock attached. IV solution NS infusing at 100 cc/hr. Sterile dressing applied. Patient tolerated precedure well. Procedure performed according to [facility] policy & procedure. Pt states that morphine was effective for pain. ALEJANDRA DUKES
--- NOTE | 2019-04-13 11:40 | NUR ---
Geophysical Observer in to talk to patient. Patient states lives at HOME with MOTHER. There are FEW steps in the home. Physician: NONE [facility]acy: [facility] Home health services: NONE Patient's level of ADLs: INDEPENDENT Patient has working utilities: YES DME: NONE Follow-up physician's appointment after d/c: PERFERS TO FIND OWN AND MAKE APPOINTMENT Does patient want to access PORTAL?: NO Discharge plan PT STATES SHE IS CURRENTLY LIVING WITH HER MOTHER AT HOME. DENIES ANY NEEDS ON DISCHARGE. CAN BE DISCHARGED TO HOME WHEN MEDICALLY STABLE. WILL CONTINUE TO FOLLOW. STATES SHE LIVES CLOSE AND WILL WALK HOME . NIKKIE LUNA
[2019-04-13 12:00] VITALS: BP 92/42
--- NOTE | 2019-04-13 14:24 | NUR ---
Pt states she is feeling much better. States she has tolerated her regular diet. Denies any abdominal pain or nausea with eating or post eating.
--- NOTE | 2019-04-13 15:50 | NUR ---
Pt states that her sister who is watching her 5 children had a family emergency. States that her sister's child fell in gym and had to be life flighted to [place]. States her sister has 2 other young children and has no way to transfer all the children with her to [place]. Pt states she has no one to watch her children and needs to leave. I spoke with Dr. Lara regarding this to see if it was possible to DC pt instead of signing out AMA. PT did eat breakfast and lunch and tolerated without pain or nausea. Dr. Lara communicated this to Dr. Joaquin who stated to her which she stated to me that pt would have to sign out as BC were not back yet.
--- NOTE | 2019-04-13 15:55 | NUR ---
Pt signed AMA paper, I notified her of statements made to me by Dr. Lara of reason for not wanting to discharge at this time. Pt verbalized understanding. I did advise pt that if she began to feel worse to have fever, chills, lethargy or anything else that caused concern to come back to ER. Notified that if BC were positive she may be called to come back to hospital for treatment. Notified her that bacteremia is dangerous if not treated and could lead to complications including possible demise. Pt verbalized understanding.
--- NOTE | 2019-04-13 16:00 | NUR ---
Pt ambulated out with belongings in care of significant other.
--- NOTE | 2019-04-13 16:00 | NUR ---
Pt gave me her boyfriends number if she needs to be called at [phone]. His name is Don. I called registration and notified them so they could update contact info.
[2019-04-22] MEDS ORDERED: CLINDAMYCIN HC300 MG PO (22:08)
[2019-04-23] MEDS ORDERED: MELATONIN5 M6 PO (17:06)
[2019-04-26] MEDS ORDERED: HYDROCODONE-AC1 EAC1 PO (14:19)
[2019-04-26] MEDS ORDERED: AUGMENTIN 875875 MG PO (14:20)
[2019-05-11] MEDS ORDERED: CEPHALEXIN500 M1 PO (15:20)
== END 2019-04-13 16:00 | disposition left against medical advice (07) | DRG 872 ==
LOC: ED 11:11 → 5E 15:23 → EDHOLD 15:23 → 5E 15:57
PROVIDERS: Internal Medicine; Physician Assistant; ADMIT Internal Medicine
DX: A41.9 Sepsis, unspecified organism (principal); K52.9 Noninfective gastroenteritis and colitis, unspecified; F17.210 Nicotine dependence, cigarettes, uncomplicated; D47.3 Essential (hemorrhagic) thrombocythemia; D72.810 Lymphocytopenia; E87.6 Hypokalemia; Z53.21 Procedure and treatment not carried out due to patient leaving prior to being seen by health care provider; N83.201 Unspecified ovarian cyst, right side; G47.00 Insomnia, unspecified; E87.8 Other disorders of electrolyte and fluid balance, not elsewhere classified; R73.9 Hyperglycemia, unspecified; Z90.49 Acquired absence of other specified parts of digestive tract; Z82.49 Family history of ischemic heart disease and other diseases of the circulatory system; Z83.42 Family history of familial hypercholesterolemia; Z80.8 Family history of malignant neoplasm of other organs or systems; Z82.5 Family history of asthma and other chronic lower respiratory diseases; Z71.6 Tobacco abuse counseling

== ENCOUNTER 2020-07-14 13:35 | Emergency (ER) | payer OTHER ==
[~2020-07-14 13:35] MED LIST changes: +CLINDAMYCIN HC300 MG PO; +HYDROCODONE-AC1 EAC1 PO; +MELATONIN5 M6 PO
[2020-07-14 15:04] LABS: BILIRUBIN NEGATIVE; BLOOD NEGATIVE (NEGATIVE); CLARITY CLEAR (CLEAR); COLOR YELLOW (YELLOW); GLUCOSE NEGATIVE; KETONE NEGATIVE; NITRITE NEGATIVE (NEGATIVE); PH 8.5 (4.5-8.0); UROBILINOGEN 0.2 E.U./dl (0.0-1.0)
[2020-07-14 15:05] LABS: LEUKO ESTERASE TRACE (NEGATIVE)
[2020-07-14] MEDS ORDERED: IBUPROFEN600 MG PO (15:05)
[2020-07-14] MEDS ORDERED: ROBAXIN-750750 MG PO (15:05)
[2020-07-14 15:07] LABS: BACTERIA 1+; RBC 0-2 rbc/hpf (0-2); WBC 0-2 wbc/hpf (0-5)
== END 2020-07-14 15:18 | disposition home or self-care (01) ==
LOC: ED 13:35
PROVIDERS: Physician Assistant
DX: S33.5XXA Sprain of ligaments of lumbar spine, initial encounter (principal); F17.200 Nicotine dependence, unspecified, uncomplicated; X58.XXXA Exposure to other specified factors, initial encounter; Y93.89 Activity, other specified; Y92.89 Other specified places as the place of occurrence of the external cause; Y99.8 Other external cause status

== ENCOUNTER 2020-12-04 14:19 | Emergency (ER) | payer OTHER ==
[~2020-12-04] VITALS: Ht 160 cm; Wt 59.0 kg
[~2020-12-04 14:19] MED LIST changes: +ROBAXIN-750750 MG PO
[2020-12-04] MEDS ORDERED: ROBAXIN-750750 MG PO (16:13)
[2020-12-04] MEDS ORDERED: IBUPROFEN600 MG PO (16:13)
== END 2020-12-04 16:41 | disposition home or self-care (01) ==
LOC: ED 14:19
DX: S33.5XXA Sprain of ligaments of lumbar spine, initial encounter (principal); X58.XXXA Exposure to other specified factors, initial encounter; Y93.89 Activity, other specified; Y92.89 Other specified places as the place of occurrence of the external cause; Y99.8 Other external cause status

== ENCOUNTER 2022-02-24 21:34 | Emergency (ER) | payer OTHER ==
[~2022-02-24] VITALS: Ht 160 cm; Wt 59.0 kg
[~2022-02-24 21:34] MED LIST changes: +HYDROXYZINE HCL25 MG PO; +MIRTAZAPINE15 M2 PO; +NICODERM CQ1 EAC2 T
[2022-02-25] MEDS ORDERED: CLINDAMYCIN HC300 MG PO (01:36)
[2022-02-25] MEDS ORDERED: ULTRAM50 MG PO (01:39)
== END 2022-02-25 01:44 | disposition home or self-care (01) ==
LOC: ED 21:34
DX: K04.7 Periapical abscess without sinus (principal); J44.9 Chronic obstructive pulmonary disease, unspecified; F17.210 Nicotine dependence, cigarettes, uncomplicated; Z79.899 Other long term (current) drug therapy; Z90.49 Acquired absence of other specified parts of digestive tract

== ENCOUNTER 2023-03-14 08:22 | Emergency (ER) | payer OTHER ==
[~2023-03-14] VITALS: Ht 160 cm; Wt 59.0 kg
[2023-03-14] MEDS ORDERED: CLEOCIN HCL150 MG PO ×3 (08:36→08:55)
[2023-03-14] MEDS ORDERED: IBUPROFEN600 MG PO ×3 (08:36→08:55)
== END 2023-03-14 08:40 | disposition home or self-care (01) ==
LOC: ED 08:22
DX: K08.89 Other specified disorders of teeth and supporting structures (principal); F41.9 Anxiety disorder, unspecified; J45.909 Unspecified asthma, uncomplicated; F31.9 Bipolar disorder, unspecified; Z90.49 Acquired absence of other specified parts of digestive tract; F17.200 Nicotine dependence, unspecified, uncomplicated

== ENCOUNTER 2024-04-20 07:56 | Emergency (ER) | payer OTHER ==
[~2024-04-20] VITALS: Ht 160 cm; Wt 54.4 kg
[~2024-04-20 07:56] MED LIST changes: +CLEOCIN HCL150 MG PO
[2024-04-20] MEDS ORDERED: IBUPROFEN 400 MG TAB PO ONE (08:15)
[2024-04-20] MEDS ORDERED: Lidocaine Hydrochloride 2 ML AMP SC ONE (08:15)
[2024-04-20] MEDS ORDERED: AMOXICILLIN 500 MG CAP PO ONE (08:15)
[2024-04-20] MEDS ORDERED: ACETAMINOPHEN 325 MG TAB PO ONE (08:15)
[2024-04-20] MEDS ORDERED: BUPIVACAINE 0.5% 10 ML VIAL SC ONE (08:15)
[2024-04-20] MEDS ORDERED: AMOXICILLIN500 M3 PO (08:16)
[2024-04-20] MEDS ORDERED: Motrin,Rufen400 MG PO (08:16)
[2024-04-20] MEDS ORDERED: TYLENOL EXTRA500 MG PO (08:16)
== END 2024-04-20 08:40 | disposition home or self-care (01) ==
LOC: ED 07:56
DX: K08.89 Other specified disorders of teeth and supporting structures (principal); K02.9 Dental caries, unspecified; F41.9 Anxiety disorder, unspecified; J44.9 Chronic obstructive pulmonary disease, unspecified; E78.00 Pure hypercholesterolemia, unspecified; E83.41 Hypermagnesemia; E87.6 Hypokalemia; F31.9 Bipolar disorder, unspecified; F90.9 Attention-deficit hyperactivity disorder, unspecified type; F12.90 Cannabis use, unspecified, uncomplicated; F17.200 Nicotine dependence, unspecified, uncomplicated; D64.9 Anemia, unspecified; Z90.49 Acquired absence of other specified parts of digestive tract

== ENCOUNTER 2024-04-22 07:54 | Emergency (ER) | payer OTHER ==
[~2024-04-22] VITALS: Ht 160 cm; Wt 54.4 kg
[~2024-04-22 07:54] MED LIST changes: +AMOXICILLIN500 M3 PO; +Motrin,Rufen400 MG PO; +TYLENOL EXTRA500 MG PO
[2024-04-22] MEDS ORDERED: IBU800 MG PO (08:20)
[2024-04-22] MEDS ORDERED: CLEOCIN HCL300 MG PO (08:20)
[2024-04-22] MEDS ORDERED: PREDNISONE50 MG PO (08:20)
== END 2024-04-22 08:37 | disposition home or self-care (01) ==
LOC: ED 07:54
DX: K04.7 Periapical abscess without sinus (principal); F41.9 Anxiety disorder, unspecified; J45.909 Unspecified asthma, uncomplicated; F31.9 Bipolar disorder, unspecified; F90.9 Attention-deficit hyperactivity disorder, unspecified type; F17.200 Nicotine dependence, unspecified, uncomplicated; Z90.49 Acquired absence of other specified parts of digestive tract

== ENCOUNTER 2024-07-23 12:00 | Emergency (ER) | payer OTHER ==
[~2024-07-23] VITALS: Ht 160 cm; Wt 59.0 kg
[~2024-07-23 12:00] MED LIST changes: +CLEOCIN HCL300 MG PO; +IBU800 MG PO; +PREDNISONE50 MG PO
[2024-07-23] MEDS ORDERED: PREDNISONE20 M1 PO (12:57)
[2024-07-23] MEDS ORDERED: Acetaminophen/Oxycodone 5 MG/325 MG TABLET PO ONE (13:00)
[2024-07-23] MEDS ORDERED: methylPREDNISolone sod succ 125 MG VIAL IM ONE (13:00)
== END 2024-07-23 13:04 | disposition home or self-care (01) ==
LOC: ED 12:00
DX: M54.32 Sciatica, left side (principal); M79.605 Pain in left leg; F41.9 Anxiety disorder, unspecified; J44.9 Chronic obstructive pulmonary disease, unspecified; E78.00 Pure hypercholesterolemia, unspecified; E83.41 Hypermagnesemia; E87.6 Hypokalemia; D64.9 Anemia, unspecified; F31.9 Bipolar disorder, unspecified; F90.9 Attention-deficit hyperactivity disorder, unspecified type; F12.90 Cannabis use, unspecified, uncomplicated; F17.210 Nicotine dependence, cigarettes, uncomplicated; Z90.49 Acquired absence of other specified parts of digestive tract

== ENCOUNTER → 2024-07-30 | Outpatient (CLI) | payer OTHER ==
[~2024-07-30] MED LIST changes: +PREDNISONE20 M1 PO
[2024-07-30 13:27] LABS: BASO # 0.1 10*3/uL (0.0-0.1); BASO % 0.4 % (0.0-1.0); BILIRUBIN Negative (Negative); BLOOD Negative (Negative); CLARITY Clear (Clear); COLOR Yellow (Yellow); EOS # 0.2 10*3/uL (0.0-0.4); EOS % 1.7 % (1.0-4.0); GLUCOSE Negative (Negative); HEMATOCRIT 31.4 % (37.0-47.0); KETONE Trace (Negative); LEUKO ESTERASE Negative (Negative); LYMPH # 2.6 10*3/uL (1.3-4.4); LYMPH % 19.2 % (27.0-41.0); MEAN CELL VOLUME 70.7 fl (81.0-99.0); MEAN CORPUSCULAR HGB 20.3 pg (27.0-31.0); MEAN CORPUSCULAR HGB CONC 28.7 g/dl (33.0-37.0); MEAN PLATELET VOLUME 10.8 fl (9.6-12.3); MONO # 0.6 10*3/uL (0.1-1.0); MONO % 4.6 % (3.0-9.0); NEUT % 73.7 % (47.0-73.0); NITRITE Negative (Negative); PLATELET COUNT AUTOMATED 324 10*3/uL (130-400); RED BLOOD COUNT 4.44 10*6/uL (4.10-5.10); RED CELL DISTRI WIDTH 18.1 % (0-14.5); RETICULOCYTE % 2.25 % (0.50-2.50); SPECIFIC GRAVITY >= 1.030 (1.001-1.030); WHITE BLOOD COUNT 13.6 10*3/uL (4.8-10.8)
[2024-07-30 13:58] LABS: ALKALINE PHOSPHATASE 64 U/L (46-116); BUN 17 mg/dl (9-23); CHLORIDE 106 mmol/L (98-107); CHOLESTEROL 122 mg/dL (<200); GAMMA GLUTAMYL TRANSPEPTIDASE < 7 U/L (0-73); LDL CHOLESTEROL 64 mg/dL (9-159); POTASSIUM 3.4 mmol/L (3.4-5.1); SGPT/ALT 8 U/L (5-49); T3 UPTAKE 28.6 % (22.4-36.7); THYROXINE (T4) TOTAL 6.2 ug/dl (4.5-10.9); TOTAL PROTEIN 6.9 gm/dL (6.0-8.0); TRIGLYCERIDES 86 mg/dl (<150); URIC ACID 3.6 mg/dL (3.1-7.8)
[2024-07-30 13:59] LABS: VITAMIN D, 25-HYDROXY 46.8 ng/mL (30-100)
[2024-07-30 14:04] LABS: BACTERIA TRACE; RBC 0-2 rbc/hpf (0-2)
[2024-07-31 15:07] LABS: ANTI-DSDNA ANTIBODIES 3 IU/mL (0-9)
== END | disposition home or self-care (01) ==
LOC: LAB 12:38
PROVIDERS: ATTEND Family Medicine
DX: R53.83 Other fatigue (principal); R79.89 Other specified abnormal findings of blood chemistry; M54.50 Low back pain, unspecified; E55.9 Vitamin D deficiency, unspecified; E78.5 Hyperlipidemia, unspecified; R74.8 Abnormal levels of other serum enzymes

== ENCOUNTER 2024-08-07 17:18 | Emergency (ER) | payer OTHER ==
[~2024-08-07] VITALS: Ht 1615 cm; Wt 59.0 kg
[2024-08-07] MEDS ORDERED: Dexamethasone Sodium Phospha 20 MG/5 ML VIAL IM ONE (17:40)
[2024-08-07] MEDS ORDERED: IBUPROFEN 800 MG TAB PO ONE (17:40)
[2024-08-07] MEDS ORDERED: PREDNISONE20 M1 PO (19:44)
== END 2024-08-07 19:54 | disposition home or self-care (01) ==
LOC: ED 17:18
DX: M54.42 Lumbago with sciatica, left side (principal); F41.9 Anxiety disorder, unspecified; J45.909 Unspecified asthma, uncomplicated; F31.9 Bipolar disorder, unspecified; F90.9 Attention-deficit hyperactivity disorder, unspecified type; F17.200 Nicotine dependence, unspecified, uncomplicated; Z90.49 Acquired absence of other specified parts of digestive tract; Z98.890 Other specified postprocedural states

== ENCOUNTER 2024-09-21 17:12 | Emergency (ER) | payer OTHER ==
[~2024-09-21] VITALS: Ht 160 cm; Wt 59.0 kg
[2024-09-21] MEDS ORDERED: Acetaminophen/Oxycodone 5 MG/325 MG TABLET PO ONE (18:00)
[2024-09-21] MEDS ORDERED: MELOXICAM15 MG PO (18:07)
== END 2024-09-21 18:21 | disposition home or self-care (01) ==
LOC: ED 17:12
DX: S93.402A Sprain of unspecified ligament of left ankle, initial encounter (principal); F41.9 Anxiety disorder, unspecified; J45.909 Unspecified asthma, uncomplicated; F90.9 Attention-deficit hyperactivity disorder, unspecified type; F31.9 Bipolar disorder, unspecified; F17.200 Nicotine dependence, unspecified, uncomplicated; Z90.49 Acquired absence of other specified parts of digestive tract; W10.9XXA Fall (on) (from) unspecified stairs and steps, initial encounter; Y93.89 Activity, other specified; Y92.89 Other specified places as the place of occurrence of the external cause; Y99.8 Other external cause status

== ENCOUNTER 2025-02-10 10:10 | Emergency (ER) | payer OTHER ==
[~2025-02-10] VITALS: Ht 160 cm; Wt 54.4 kg
[~2025-02-10 10:10] MED LIST changes: +MELOXICAM15 MG PO
[2025-02-10] MEDS ORDERED: Amoxicillin/Clavulanate Pota 875 MG TAB PO ONE ×2 (10:55)
[2025-02-10] MEDS ORDERED: AMOX-CLAV 875-1 EACH PO (10:56)
== END 2025-02-10 11:06 | disposition home or self-care (01) ==
LOC: ED 10:10
DX: K04.7 Periapical abscess without sinus (principal); F17.200 Nicotine dependence, unspecified, uncomplicated; Z90.49 Acquired absence of other specified parts of digestive tract

== ENCOUNTER 2025-07-17 08:07 | Emergency (ER) | payer OTHER ==
[~2025-07-17] VITALS: Ht 160 cm; Wt 59.0 kg
[~2025-07-17 08:07] MED LIST changes: +AMOX-CLAV 875-1 EACH PO
[2025-07-17] MEDS ORDERED: PENICILLIN VK500 MG PO (09:18)
[2025-07-17] MEDS ORDERED: Ondansetron Hydrochloride 4 MG TAB PO ONE (09:20)
== END 2025-07-17 09:26 | disposition home or self-care (01) ==
LOC: ED 08:07
DX: K04.7 Periapical abscess without sinus (principal); F17.200 Nicotine dependence, unspecified, uncomplicated; Z90.49 Acquired absence of other specified parts of digestive tract